=== PATIENT | female | born 1980 | race Caucasian/White ===

== ENCOUNTER 2022-10-18 17:17 | Emergency (ER) | payer BC, OTHER ==
[~2022-10-18] VITALS: Ht 180.3 cm; Wt 136.1 kg
[~2022-10-18 17:17] MED LIST: ENTOCORT EC3 MG PO; HUMIRA40 MG/0.8 IM; PANTOPRAZOLE SO40 MG PO; PENTASA500 MG PO; POTASSIUM PO; RANITIDINE HCL300 M1 PO; VITAMIN B PO; VITAMIN D PO
[2022-10-18] MEDS ORDERED: HYDROCODONE/APAP 10MG-325MG TAB PO ONE (17:45)
[2022-10-18] MEDS ORDERED: ONDANSETRON HCL 4 MG ORAL DISINTEGRATING TAB PO ONE (17:45)
== END 2022-10-18 19:19 | disposition home or self-care (01) ==
LOC: ER 17:43
DX: S06.0X0A Concussion without loss of consciousness, initial encounter (principal); W01.0XXA Fall on same level from slipping, tripping and stumbling without subsequent striking against object, initial encounter; Y93.01 Activity, walking, marching and hiking; Y92.89 Other specified places as the place of occurrence of the external cause; I10 Essential (primary) hypertension
CPT/HCPCS: 70450; 72125; 99283; Q0162